=== PATIENT | female | born 1985 | race Caucasian/White ===

== ENCOUNTER 2021-07-23 16:20 | Emergency (ER) | payer OTHER ==
[2021-07-23 16:38] VITALS: BP 138/81
[2021-07-23] MEDS ORDERED: HYDROcod/ACETAM 5/325 MG TABLET PO STA (16:40)
--- NOTE | 2021-07-23 16:41 | ED Physician Documentation ---
PD HPI LOWER EXT INJURY - Stated complaint Stated Complaint: LEFT TOE INJURY - Chief complaint Chief Complaint: Ext Problem - History obtained from History obtained from: Patient - Additional information Additional information: This is a indira 36-year-old woman who is not driving who accidentally kicked a chair at 930 this morning now has severe pain in the right fifth toe. No other injuries. No possibility of . Review of Systems Constitutional: reports: Reviewed and negative Eyes: reports: Reviewed and negative Ears: reports: Reviewed and negative PD PAST MEDICAL HISTORY - Present Medications Home Medications: Ambulatory Orders Medication Instructions Recorded Confirmed HYDROcod/ACETAM 5/325 [[place] 5/325] 1 - 2 tab PO Q6H PRN #15 tablet 07/23/21 - Allergies Allergies/Adverse Reactions: Allergies Allergy/AdvReac Type Severity Reaction Status Date / Time No Known Drug Allergies Allergy Verified 07/23/21 16:38 PD ED PE NORMAL - Vitals Vital signs reviewed: Yes - General General: Alert and oriented X 3, No acute distress - Extremities Extremities: Other (Quite tender and bruised to the fifth toe without deformity.) - Neuro Neuro: Alert and oriented X 3, Normal speech Results - Vitals Vitals: Vital Signs - 24 hr 07/23/21 16:34 Temperature 36.3 C L Heart Rate 88 Respiratory 16 Rate Blood Pressure 138/81 H O2 Saturation 100 Oxygen O2 Source Room air - Rads (name of study) X-ray of the left small toe demonstrates fracture of the distal phalanx, medial side Radiology: EMP read contemporaneously PD MEDICAL DECISION MAKING - ED course ED course: Toes were tamiko taped and she is placed in a fracture shoe for comfort. Departure - Departure Disposition: 01 Home, Self Care Clinical Impression: Toe fracture, left Qualifiers: Encounter type: initial encounter Toe: lesser toe Fracture type: closed Phalanx: distal Fracture alignment: displaced Qualified Code(s): S92.532A - Displaced fracture of distal phalanx of left lesser toe(s), initial encounter for closed fracture Condition: Good Record reviewed to determine appropriate education?: Yes Instructions: ED Fx Toe Closed Prescriptions: HYDROcod/ACETAM 5/325 [[place] 5/325] 1 - 2 tab PO Q6H PRN #15 tablet PRN Reason: Pain Comments: Tamiko tape toes as shown and wear the shoe for comfort. Return for new or worsening symptoms. Prescription sent electronically to [facility] in [place] I am prescribing a short course of narcotic pain medication for you. These are potentially dangerous and addictive medications that should be used carefully. These medications may constipate you. Take an [id number] stool softener (docusate) twice daily with plenty of water while taking these medications. If you go 24 hours without a bowel movement, take [id number] miralax, per package instructions. Do not drink or drive while taking these medications. If you received narcotic or sedating medications while in the emergency dep artment, do not drive for 24 hours. Store this medication in a safe, secure place and out of reach of children. It is a violation of federal law to give or sell this medication to another person or to use in a manner other than prescribed. The ED will not refill narcotic prescriptions, including prescriptions lost or stolen. To dispose of unwanted medications: 1. [facility] at [address] in [place] has a medication drop box. They accept prescription medications (in pill form) Sunday through Sunday 9:00 a.m. to 5:00 p.m. 2. [facility] accepts prescription medications (in pill form only) for disposal year round. Call for more information. 3. Contact the [facility] for the next [facility] sponsored prescription drug collection event. , [phone], or [phone]; Note that many narcotic pain relievers also contain Tylenol/acetaminophen. Please ensure that your total dose of acetaminophen from all sources does not exceed 3 g (3000 mg) per day.
--- NOTE | 2021-07-23 17:08 | XRAY Report ---
PROCEDURE: Toe(s) LT INDICATIONS: pinky toe inj TECHNIQUE: 3 views of the fifth toe(s) acquired. COMPARISON: None FINDINGS: Bones: Fracture base of fifth distal phalanx extends to the interphalangeal joint space. Normal bone mineralization present. Soft tissues: No suspicious soft tissue densities. IMPRESSION: Intra-articular base of the fifth distal phalangeal fracture Reviewed by: Fernando Abernathy MD on 07/23/2021 4:06 PM [place] Approved by: Fernando Abernathy MD on 07/23/2021 4:06 PM AKDT Station ID: [id number]
== END 2021-07-23 17:14 | disposition home or self-care (01) ==
LOC: ED 16:20
DX: S92.532A Displaced fracture of distal phalanx of left lesser toe(s), initial encounter for closed fracture (principal); W22.03XA Walked into furniture, initial encounter
CPT/HCPCS: 73660; 99283; A9270

== ENCOUNTER 2023-04-25 07:07 | Outpatient (CLI) | payer OTHER ==
--- NOTE | 2023-04-25 08:38 | MRI Report ---
PROCEDURE: SHOULDER WO - RT INDICATIONS: RIGHT SHOULDER PAIN TECHNIQUE: Noncontrast oblique coronal T2 fast spin echo with fat saturation, oblique sagittal T1 spin echo and T2 fast spin echo with fat saturation, axial T1 spin echo and T2 fast spin echo with fat saturation t hrough the shoulder. COMPARISON: None. FINDINGS: Image quality: Excellent. Rotator cuff: 11 mm diameter low T2 intensity focus within the mid/anterior supraspinatus tendon at t he humeral insertion site with mild surrounding T2 signal elevation in the supraspinatus tendon. Low- grade bursal surface tearing of the posterior supraspinatus and anterior infraspinatus tendons at the humeral insertion sites. Subscapularis and teres minor tendons are intact. No rotator cuff atrophy. Bones and bursae: No bone marrow contusions or fractures. Moderate acromioclavicular joint degenerat ion. The acromion demonstrates conventional anatomy, without an os acromiale. A small amount of suba cromial/subdeltoid bursal fluid is present. Capsule and soft tissues: In the absence of intra-articular contrast, the labrum and glenohumeral li gaments appear intact. The long head of the biceps tendon demonstrates normal location and morpholog y. The rotator interval appears normal, without fibrosis. The coracohumeral ligament is normal in t hickness. IMPRESSION: 1. Calcific tendinitis of the rotator cuff. 2. Low-grade bursal surface tearing of the supraspinatus and infraspinatus tendons. 3. Subacromial bursitis. 4. Acromioclavicular joint osteoarthritis. Reviewed by: Maritza Cosme MD on 04/25/2023 8:37 AM PDT Approved by: Maritza Cosme MD on 04/25/2023 8:37 AM PDT Station ID: [id number]
== END 2023-04-25 07:08 | disposition home or self-care (01) ==
LOC: DI 07:07
PROVIDERS: ATTEND Student in an Organized Health Care Education/Training Program
DX: M75.31 Calcific tendinitis of right shoulder (principal); M75.101 Unspecified rotator cuff tear or rupture of right shoulder, not specified as traumatic; M75.51 Bursitis of right shoulder; M19.011 Primary osteoarthritis, right shoulder